=== PATIENT | female | born 1995 | race Hispanic/Latino ===

== ENCOUNTER 2017-09-19 11:33 | Emergency (ER) | payer SELFPAY ==
--- NOTE | 2017-09-19 12:15 | RAD ---
RADIOGRAPH CHEST 2 VIEWS: HISTORY: 22-year-old female with cough. FINDINGS: The lungs are clear. The cardiomediastinal silhouette and hilar shadows are normal. There is no pleur al effusion. The osseous structures appear normal. There is no pneumothorax. IMPRESSION: Normal. jn [] POS: REGINA
[2017-09-19] MEDS ORDERED: Ibuprofen 200 MG TAB ONE (12:39)
[2017-09-19] MEDS ORDERED: Acetaminophen 325 MG TAB ONE (12:39)
== END 2017-09-19 12:46 | disposition home or self-care (01) ==
LOC: ERS 11:33
DX: J11.1 Influenza due to unidentified influenza virus with other respiratory manifestations (principal)
CPT/HCPCS: 71020

== ENCOUNTER 2018-06-24 14:19 | Outpatient (CLI) | payer OTHER | END 2018-06-24 14:20 | disposition home or self-care (01) | LOC: BICULT 14:19 | PROVIDERS: ATTEND Obstetrics & Gynecology | DX: Z34.82 Encounter for supervision of other normal pregnancy, second trimester (principal); Z3A.20 20 weeks gestation of pregnancy | CPT/HCPCS: 76805 ==

== ENCOUNTER 2018-07-15 13:55 | Outpatient (CLI) | payer OTHER ==
--- NOTE | 2018-07-15 16:03 | ULT ---
LIMITED OB ULTRASOUND: 07/15/18 PROVIDED CLINICAL HISTORY: Incomplete survey. FINDINGS: Limited sonographic interrogation of the face was performed, demonstrating a normal sonographi c appearance to the nose and lips. heart rate of 140 beats per minute is documented. IMPRESSION: As above. POS: DILIP
== END 2018-07-15 13:56 | disposition home or self-care (01) ==
LOC: BICULT 13:55
PROVIDERS: ATTEND Obstetrics & Gynecology
DX: Z34.82 Encounter for supervision of other normal pregnancy, second trimester (principal)
CPT/HCPCS: 76815

== ENCOUNTER 2018-07-17 21:47 | Emergency (ER) | payer OTHER | END 2018-07-17 23:55 | disposition left against medical advice (07) | LOC: ERS 21:47 | DX: Z53.21 Procedure and treatment not carried out due to patient leaving prior to being seen by health care provider (principal) ==

== ENCOUNTER 2018-09-18 11:14 | Outpatient (CLI) | payer OTHER ==
--- NOTE | 2018-09-18 13:48 | ULT ---
OBSTETRICAL ULTRASOUND: 09/18/2018 HISTORY: A 23-year-old female, undergoing limited assessment for size and dates. COMPARISON: None. TECHNIQUE: Multiplanar ram-scale sonographic imaging of the gravid uterus obtained. FINDINGS: Anatomy was not assessed on this exam. The cervix is obscured by shadowing associated with the head. A single intrauterine gestation demonstrates a vertex presentation, with a posterior placenta and a heart rate of 136 beats per minute. No evidence for placenta previa or abruption. Amniotic fluid index is estimated at 12.2 cm. BIOMETRY: BPD: 7.7 cm (30 weeks 5 days). HC: 29.0 cm (31 weeks 6 days). AC: 28.0 cm (32 weeks 0 days). FL: 6.1 cm (31 weeks 4 days). AVERAGE AGE BASED ON ULTRASOUND: 31 weeks 5 days. ESTIMATED DATE OF DELIVERY: 11/15/2018 ESTIMATED WEIGHT: 1841 g, plus or minus 272 g. IMPRESSION: Single intrauterine gestation, as described above. POS: OFF
== END 2018-09-18 11:15 | disposition home or self-care (01) ==
LOC: SCSULT 11:14
PROVIDERS: ATTEND Student in an Organized Health Care Education/Training Program
DX: Z34.03 Encounter for supervision of normal first pregnancy, third trimester (principal); Z3A.31 31 weeks gestation of pregnancy
CPT/HCPCS: 76805

== ENCOUNTER 2018-10-21 11:03 | Inpatient (IN) | payer MEDICAID, OTHER, SELFPAY ==
[2018-10-21 11:38] VITALS: BMI 27.0
[2018-10-21] MEDS ORDERED: Penicillin G Potassium 5 MILL.UNITS VIAL ONE (11:45)
[2018-10-21] MEDS ORDERED: Sodium Chloride 0.9% 100 ML ONE (11:45)
--- NOTE | 2018-10-21 11:53 | PDOC.LDHP ---
Labor and Delivery H&P Chief complaint: contractions, loss of fluid HPI: Patient of Dr Hernandez (Dr Hunt covering until 1pm) Location: L&D CC: LOF (clear at 1000) HPI: 23 yo G1 with SOOL and LOF since 1015. No OB complications, no VB, no ALTMAN, good FM. Review of Systems: completed and as per HPI Current gestational age (weeks): 37 (1 day) Dating criteria: last menstrual period Grav: 1 Para: 0 Current complications: none Abnormal US findings: No Current medications: pre- vitamins Previous surgical history: none Allergies/Adverse Reactions: Allergies Allergy/AdvReac Type Severity Reaction Status Date / Time No Known Drug Allergies Allergy Verified 10/21/18 11:35 - Physical Exam Vital signs reviewed and normal: yes (112/76 afebrile, pulse 85) General: NAD Heart: RRR Lungs: CTAB Abdomen: gravid (7# clinically) Extremeties: no edema - Vaginal Exam cm dilated: 4 (BOWR..clear) Effacement: 75% Station: 0 - Assessment L&D Assessment: term rupture in membranes (Earlt labor, 37 weeks 1 day; GBS positive) - Plan Plan: admit to L&D, labor augmentation if indicated, GBS antibiotic prophylaxis , informed consent obtained, anesthesia consult for pain management, other (I have notifed Dr hunt, covering for David until 1pm or so)
[2018-10-21] MEDS ORDERED: Ibuprofen 800 MG TAB PO PRN (11:55)
[2018-10-21] MEDS ORDERED: Butorphanol Tartrate 1 MG/ML VIAL SLOW IVP PRN (11:55)
[2018-10-21] MEDS ORDERED: Lidocaine 1% (PF) 30 ML VIAL SC PRN (11:55)
[2018-10-21] MEDS ORDERED: HYDROcodone/Acetaminophen 5/325 mg Tablet PO PRN ×3 (11:55→22:33)
[2018-10-21] MEDS ORDERED: Promethazine HCl 25 MG/ML VIAL IM PRN (11:55)
[2018-10-21] MEDS ORDERED: Penicillin G Potassium 5 MILL.UNITS in Sodium Chloride 0.9% 100 ML IVPB SCH (12:00)
[2018-10-21] MEDS ORDERED: Lactated Ringer's 1,000 ML IV SCH (12:00)
[2018-10-21 12:10] LABS: Mean Corpuscular HGB CONC 33.5 g/dL (32.0-36.0); Mean Corpuscular Hemoglobin 28.7 pg (27.0-31.0); Mean Corpuscular Volume 85.9 fL (78.0-98.0); Mean Platelet Volume 7.7 fL (7.4-10.4); Platelet Count 349 thou/uL (130-400); RBC Distribution Width 13.4 % (11.5-14.5); Red Blood Cell (RBC) Count 3.84 mill/uL (4.20-5.40); White Blood Cell (WBC) Count 9.5 thou/uL (4.8-10.8)
[2018-10-21 12:48] LABS: Syphilis Antibody Nonreactive (Nonreactive); Syphilis Antibody Index 0.02 S/CO (<1.00 Non-Reactive)
[2018-10-21 12:49] LABS: HBSAg Index 0.18 S/CO (0-0.99); HIV (1/2) Antibody/Antigen Non-Reactive (NonReactive); HIV 1/2 INDEX 0.14 S/CO (<1.00); Hep B Surf Ag Non-Reactive S/CO (NonReactive)
[2018-10-21] MEDS ORDERED: NS w/ Oxytocin 10 units 500 ML ONE (15:42)
[2018-10-21] MEDS ORDERED: NS w/ Oxytocin 10 units 500 ML IV SCH (15:45)
[2018-10-21] MEDS ORDERED: Penicillin G 2.5 MILL.units 2.5 MILL.UNITS in Premix Bag 1 BAG IVPB SCH (17:00)
[2018-10-21] MEDS: NS / Oxytocin 40 units/1000ml 1,000 ML IV PRN ×2 (20:40→22:32)
--- NOTE | 2018-10-21 20:58 | PDOC.OPDEL ---
OB Operative/Delivery Note Delivery Dr/Surgeon: Rhonda Ornelas DO Pre-Delivery Diagnosis: active labor, ruptured membrane Procedure/Post Delivery Dx: spontaneous vaginal delivery Weeks gestation: 37 Anesthesia: local - Findings A Sex: male - 1 min: 8 - 5 min: 9 - Additional Findings/Plan Placenta delivered: manual removal Repaired Obstetrical Laceration: other (Small bilateral labial) Estimated blood loss: 100 cc Compilations/Other Findings: in cephalic presentation Clear amniotic fluid Normal appearing placenta
[2018-10-21] MEDS ORDERED: NS / Oxytocin 40 units/1000ml 1,000 ML IV SCH (22:33)
[2018-10-21] MEDS ORDERED: Benzocaine/Menthol 20-0.5% 60 ML CAN TOP PRN (22:33)
[2018-10-21] MEDS ORDERED: Ondansetron PF 4 MG/2 ML Vial IVP PRN (22:33)
[2018-10-21] MEDS ORDERED: Misoprostol 200 MCG TAB VAG PRN (22:33)
[2018-10-21] MEDS ORDERED: Milk Of Magnesia 30 ML UDCUP PO PRN (22:33)
[2018-10-21] MEDS ORDERED: Methylergonovine 0.2 MG/ML VIAL IM PRN (22:33)
[2018-10-21] MEDS ORDERED: Preparation H Ointment 28 GM TUBE PR PRN (22:33)
[2018-10-21] MEDS ORDERED: Bisacodyl 10 MG SUPP PR PRN (22:33)
[2018-10-21] MEDS ORDERED: Lanolin Ointment 7 GM TUBE TOP PRN (22:33)
[2018-10-21] MEDS ORDERED: Zolpidem Tartrate 5 MG TAB PO PRN (22:33)
[2018-10-21] MEDS ORDERED: diphenhydrAMINE 25 MG CAP PO PRN (22:33)
[2018-10-21] MEDS ORDERED: Docusate Calcium (SURFAK) 240 MG CAP PO SCH (22:45)
[2018-10-21] MEDS ORDERED: Ibuprofen 800 MG TAB PO SCH (22:45)
[2018-10-22 07:11] LABS: Hemoglobin 10.6 g/dL (12.0-16.0); Mean Corpuscular HGB CONC 33.2 g/dL (32.0-36.0); Mean Corpuscular Hemoglobin 28.8 pg (27.0-31.0); Mean Corpuscular Volume 86.8 fL (78.0-98.0); Mean Platelet Volume 7.7 fL (7.4-10.4); Platelet Count 327 thou/uL (130-400); RBC Distribution Width 13.2 % (11.5-14.5); Red Blood Cell (RBC) Count 3.68 mill/uL (4.20-5.40); White Blood Cell (WBC) Count 18.2 thou/uL (4.8-10.8)
--- NOTE | 2018-10-22 07:36 | PDOC.PP ---
Post Progress Note Post Day #: 1 Subjective: Doing well. Breast feeding. Minimal pain and lochia. PO intake tolerated: yes Flatus: yes Ambulation: yes Vital Signs (12 hours) Temp Pulse Resp BP Pulse Ox 10/22/18 04:50 98.1 F 79 18 117/72 10/22/18 01:10 98.3 F 79 18 117/68 10/22/18 00:00 98.4 F 94 20 125/69 10/21/18 23:00 98.3 F 97 18 122/66 99 Weight Weight 143 lb - Physical Examination General: NAD Cardiovascular: RRR Respiratory: non-labored breathing Abdominal: no distention, appropriately TTP Fundus firm & at: below umbilicus Extremities: negative homans (B) Neurological: no gross focal deficits Psychiatric: A&Ox3, normal affect Result Diagrams: 10/22/18 06:44 Additional Labs: Post Labs Blood Type A POSITIVE 10/21/18 11:57 Hep Bs Antigen Non-Reactive S/CO (NonReactive) 10/21/18 11:57 (1) 37 weeks gestation of Code(s): Z3A.37 - 37 WEEKS GESTATION OF Status: Resolved (2) SROM (spontaneous rupture of membranes) Code(s): ZIC0644 - Status: Resolved (3) (spontaneous vaginal delivery) Code(s): O80 - ENCOUNTER FOR FULL-TERM UNCOMPLICATED DELIVERY Status: Acute (4) Anemia Code(s): D64.9 - ANEMIA, UNSPECIFIED Status: Acute Qualifiers: Anemia type: iron deficiency Iron deficiency anemia type: unspecified iron deficiency Qualified Code(s): D50.9 - Iron deficiency anemia, unspecified - Assessment/Plan PPD1 VSSAF Continue PP care. Iron QD Plan for d/c tomorrow with
[2018-10-22] MEDS: Docusate Calcium (SURFAK) 240 MG CAP PO SCH ×2 (09:30→22:06)
[2018-10-22] MEDS: Prenatal Vitamin 1 TAB PO SCH (09:30)
[2018-10-22] MEDS: Ibuprofen 800 MG TAB PO SCH ×3 (09:30→22:06)
[2018-10-22] MEDS: Ferrous Sulfate 325 MG TAB PO SCH ×2 (09:31→16:42)
[2018-10-23] MEDS: Ibuprofen 800 MG TAB PO SCH (06:13)
[2018-10-23] MEDS: Prenatal Vitamin 1 TAB PO SCH (07:25)
[2018-10-23] MEDS: Docusate Calcium (SURFAK) 240 MG CAP PO SCH (07:25)
[2018-10-23] MEDS: Ferrous Sulfate 325 MG TAB PO SCH (07:29)
[2018-10-23 08:04] VITALS: BP 109/57; TEMP 98.2
--- NOTE | 2018-10-23 08:15 | PDOC.PP ---
Post Progress Note Post Day #: 2 Subjective: Doing well. No concerns. Breast feeding. Minimal lochia. Cramping as expected PO intake tolerated: yes Flatus: yes Ambulation: yes Vital Signs (12 hours) Temp Pulse Resp BP Pulse Ox 10/23/18 08:04 98.2 F 77 20 109/57 L 100 Weight Weight 143 lb - Physical Examination General: NAD Cardiovascular: RRR Respiratory: non-labored breathing Abdominal: no distention, appropriately TTP Fundus firm & at: below umbilicus Extremities: negative homans (B) Neurological: no gross focal deficits Psychiatric: A&Ox3, normal affect Result Diagrams: 10/22/18 06:44 Additional Labs: Post Labs Blood Type A POSITIVE 10/21/18 11:57 Hep Bs Antigen Non-Reactive S/CO (NonReactive) 10/21/18 11:57 (1) 37 weeks gestation of Code(s): Z3A.37 - 37 WEEKS GESTATION OF Status: Resolved (2) SROM (spontaneous rupture of membranes) Code(s): [id number] - Status: Resolved (3) (spontaneous vaginal delivery) Code(s): O80 - ENCOUNTER FOR FULL-TERM UNCOMPLICATED DELIVERY Status: Acute (4) Anemia Code(s): D64.9 - ANEMIA, UNSPECIFIED Status: Acute Qualifiers: Anemia type: iron deficiency Iron deficiency anemia type: unspecified iron deficiency Qualified Code(s): D50.9 - Iron deficiency anemia, unspecified - Assessment/Plan PPD2 VSSAF Stable for d/c home when infant ready
== END 2018-10-23 12:50 | disposition home or self-care (01) | DRG 807 ==
LOC: L&D/OP 11:03 → L&D 11:53 → 3SW 23:12
PROVIDERS: ADMIT Obstetrics & Gynecology; ATTEND Obstetrics & Gynecology
PROC: 10E0XZZ Delivery of Products of Conception, External Approach (ICD-10-PCS; principal; 2018-10-21)
PROC: 0UQMXZZ Repair Vulva, External Approach (ICD-10-PCS; 2018-10-21)
DX: O99.02 Anemia complicating childbirth (principal); Z37.0 Single live birth; O70.0 First degree perineal laceration during delivery; Z3A.37 37 weeks gestation of pregnancy
CPT/HCPCS: 36415; 51702; 85027; 86780; 86850; 86900; 86901; 87340; 87389; 99285; J2001; J2540; J7050

== ENCOUNTER 2020-10-19 22:00 | Emergency (ER) | payer MEDICAID, OTHER ==
[2020-10-19] MEDS ORDERED: Acetaminophen 500 MG TAB ONE (22:24)
[2020-10-19 22:31] LABS: #Basophils 0.1 thou/uL (0.0-0.2); #Monocytes 1.2 thou/uL (0.11-0.59); #Neutrophils 12.3 thou/uL (1.40-6.50); %Basophils 0.4 % (0.0-1.0); %Eosinophils 0.1 % (0.0-10.0); %Lymphocytes 12.8 % (21.0-51.0); %Monocytes 7.4 % (0.0-10.0); %Neutrophils 79.3 % (42.0-75.0); Hemoglobin 14.3 g/dL (12.0-16.0); Mean Corpuscular HGB CONC 34.2 g/dL (32.0-36.0); Mean Corpuscular Hemoglobin 30.2 pg (27.0-31.0); Mean Corpuscular Volume 88.4 fL (78.0-98.0); Mean Platelet Volume 7.5 fL (7.4-10.4); Platelet Count 301 thou/uL (130-400); RBC Distribution Width 12.1 % (11.5-14.5); Red Blood Cell (RBC) Count 4.73 mill/uL (4.20-5.40); White Blood Cell (WBC) Count 15.5 thou/uL (4.8-10.8)
[2020-10-19 22:44] LABS: INR-International Normal Ratio 1.1; PTT 30.3 sec (22.9-36.1); Prothrombin Time 13.9 sec (12.0-14.7)
--- NOTE | 2020-10-19 22:44 | RAD ---
PORTABLE CHEST: Date: 10/19/2020 HISTORY: Cough and fever. FINDINGS: Heart size and mediastinum are within normal limits. Lungs are clear of infiltrates. No bony findings . IMPRESSION: No active intrathoracic disease. POS: OFF
[2020-10-19 22:47] LABS: ALT (SGPT) 10 U/L (8-55); AST (SGOT) 15 U/L (5-34); Albumin 4.2 g/dL (3.5-5.0); Alkaline Phosphatase 76 U/L (40-110); Anion Gap 13 mmol/L (10-20); BUN (Urea Nitrogen) 6 mg/dL (7.0-18.7); Bilirubin, Total 0.3 mg/dL (0.2-1.2); Calc. Creatinine Clearance 0 mL/min (70-130); Calcium 8.5 mg/dL (7.8-10.44); Carbon Dioxide 21 mmol/L (22-29); Chloride 102 mmol/L (98-107); Globulin 3.7 g/dL (2.4-3.5); Glucose 120 mg/dL (70-105); Potassium 3.3 mmol/L (3.5-5.1); Protein, Total 7.9 g/dL (6.0-8.3); Sodium 133 mmol/L (136-145)
--- NOTE | 2020-10-19 23:45 | ULT ---
GALLBLADDER ULTRASOUND: Date: 10/19/2020 HISTORY: Right upper quadrant pain. FINDINGS: Real-time imaging of the right upper quadrant shows a normal appearing gallbladder. Common duct is 4. 0 mm. Liver is 15.6 cm in length and shows no focal abnormalities. Right kidney shows some very minimal right-sided hydronephrosis. Pancreas regions appears largely obs cured. IMPRESSION: Suggestion of perhaps some minimal right-sided hydronephrosis. Clinical correlation as to any symptom s that would suggest the possibility of a ureteral calculus. POS: OFF
[2020-10-20 00:20] LABS: Bacteria/HPF 1+ HPF (None Seen); Bilirubin Negative (Negative); Blood, Urine 3+ (Negative); Clarity Turbid (Clear); Glucose, Urine (Dipstick) Normal (Negative); Ketone, Urine Negative (Negative); Leukocyte 500 Leu/uL (Negative); Nitrite Negative (Negative); Protein, Urine (Dipstick) 30 mg/dL (Neg-Trace); Specific Gravity, Urine 1.005 (1.002-1.036); Urobilinogen Normal mg/dL (Less than 2); WBC/HPF 21-50 HPF (0-3); pH, Urine 6.5 (5.0-9.0)
[2020-10-20] MEDS ORDERED: Ondansetron PF 4 MG/2 ML Vial ONE (01:05)
== END 2020-10-20 01:55 | disposition home or self-care (01) ==
LOC: ERS 22:00
DX: N39.0 Urinary tract infection, site not specified (principal); R11.2 Nausea with vomiting, unspecified
CPT/HCPCS: 36415; 71045; 76705; 80053; 81003; 81015; 83605; 83690; 85025; 85610; 85730; 87040; 93005; 94760; 96374; J2405

== ENCOUNTER 2021-03-29 07:08 | Emergency (ER) | payer OTHER | END 2021-03-29 09:58 | disposition home or self-care (01) | LOC: ERS 07:08 | DX: M24.411 Recurrent dislocation, right shoulder (principal) ==

== ENCOUNTER 2021-07-17 09:03 | Outpatient (CLI) | payer OTHER | END 2021-07-17 09:04 | disposition home or self-care (01) | LOC: BICULT 09:03 | PROVIDERS: ATTEND Family Medicine | DX: Z34.92 Encounter for supervision of normal pregnancy, unspecified, second trimester (principal); Z3A.20 20 weeks gestation of pregnancy | CPT/HCPCS: 76805 ==